=== PATIENT | female | born 1990 | race Caucasian/White ===

== ENCOUNTER 2018-06-07 06:15 | Day surgery (SDC) | payer BC ==
[2018-06-06 11:45] LABS: BASOPHILS % (AUTO) 0.4 % (0.0-2.0); EOSINOPHILS % (AUTO) 0.5 % (0.0-4.0); HEMATOCRIT 35.3 % (36-48); HEMOGLOBIN 12.1 g/dL (12.0-16.0); LYMPHOCYTES # (AUTO) 1.4 K/uL (1.0-5.5); LYMPHOCYTES % (AUTO) 21.5 % (20.5-51.5); MEAN CORPUSCULAR HEMOGLOBIN 31 pg (27-31); MEAN CORPUSCULAR HGB CONC 34 % (32-36); MEAN CORPUSCULAR VOLUME 89 fL (79.0-98.0); MONOCYTES # (AUTO) 0.4 K/uL (0.0-1.0); MONOCYTES % (AUTO) 6.3 % (1.7-9.3); NEUTROPHILS # (AUTO) 4.6 K/uL (1.8-7.7); NEUTROPHILS % (AUTO) 71.3 % (40.0-70.0); PLATELET COUNT (AUTO) 409 K/uL (130-430); RED BLOOD CELL COUNT(AUTO) 3.96 MIL/uL (4.2-6.2); RED CELL DISTRIBUTION WIDTH 12.3 % (9.0-15.0); WHITE BLOOD COUNT (AUTO) 6.4 K/uL (4.8-10.8)
[2018-06-06 11:58] LABS: CALCIUM 9.4 mg/dL (8.4-11.0); CREATININE 0.59 mg/dL (0.55-1.30); POTASSIUM 4.3 mmol/L (3.5-5.1)
[2018-06-06 12:03] LABS: BILIRUBIN,URINE NEGATIVE (NEGATIVE); BLOOD, URINE NEGATIVE (NEGATIVE); CLARITY/URINE CLEAR (CLEAR); COLOR,URINE YELLOW (YELLOW); GLUCOSE,URINE NEGATIVE (NEGATIVE); KETONES,URINE NEGATIVE (NEGATIVE); LEUKOCYTE ESTERASE ,URINE NEGATIVE (NEGATIVE); NITRITE, URINE NEGATIVE (NEGATIVE); PH,URINE 7.5 (5.0-8.0); PROTEIN URINE NEGATIVE (NEGATIVE); UROBILINOGEN,URINE 0.2 (0.2-1.0)
[2018-06-06 12:04] LABS: HCG,QUAL RESULT NEGATIVE (NEGATIVE)
[~2018-06-07] VITALS: Ht 160 cm; Wt 64.0 kg
[2018-06-07] MEDS ORDERED: KETOROLAC TROMETHAMINE 30 MG VIAL IVP PRN (08:15)
[2018-06-07] MEDS ORDERED: fentaNYL CITRATE/PF 100 MCG/2 ML AMP IVP PRN ×2 (08:15)
[2018-06-07] MEDS ORDERED: ONDANSETRON HCL 4 MG/2 ML VIAL IVP PRN ×2 (08:15→08:45)
[2018-06-07] MEDS ORDERED: OXYCODONE/ACETAMINOPHEN 5-325 TABLET PO PRN (08:45)
[2018-06-07] MEDS ORDERED: PROMETHAZINE HCL 25 MG/ML AMP IM PRN (08:45)
[2018-06-07] MEDS ORDERED: LR 1,000 ML IV.SOLN IV ONE (09:00)
[2018-06-07] MEDS ORDERED: KETOROLAC TROMETHAMINE 30 MG VIAL ONE (09:00)
[2018-06-07] MEDS ORDERED: fentaNYL CITRATE/PF 100 MCG/2 ML AMP ONE (09:00)
[2018-06-07] MEDS ORDERED: NEOSTIGMINE METHYLSULFATE 1 MG/ML, 10 ML VIAL ONE (09:00)
[2018-06-07] MEDS ORDERED: PROPOFOL 200MG/ 20ML VIAL (DIPRIVAN) IV ONE (09:00)
[2018-06-07] MEDS ORDERED: ROCURONIUM BROMIDE 10 MG/ML (ZEMURON) ONE (09:00)
[2018-06-07] MEDS ORDERED: MIDAZOLAM HCL 5 MG/ML VIAL (VERSED) IV ONE (09:00)
[2018-06-07] MEDS ORDERED: SEVOFLURANE 15 MIN GAS INH ONE (09:00)
[2018-06-07] MEDS ORDERED: GLYCOPYRROLATE 0.2 MG/ML VIAL ONE (09:00)
[2018-06-07] MEDS ORDERED: ONDANSETRON HCL 4 MG/2 ML VIAL ONE ×2 (09:00→12:19)
[2018-06-07] MEDS ORDERED: NS 1000 ML IV.SOLN IV ONE (09:00)
[2018-06-07] MEDS ORDERED: OXYCODONE/ACETAMINOPHEN 5-325 TABLET ONE (10:13)
[2018-06-07 13:18] VITALS: BP_SYST 95
== END 2018-06-07 12:45 | disposition home or self-care (01) ==
LOC: SDS 06:15 → SMU 06:15 → SDS 12:45
PROVIDERS: ATTEND Obstetrics & Gynecology
DX: N83.202 Unspecified ovarian cyst, left side (principal); Z83.3 Family history of diabetes mellitus; Z80.49 Family history of malignant neoplasm of other genital organs
CPT/HCPCS: 36415; 58662; 80048; 81003; 84703; 85025; 86886; 86900; 86901; 88305; C1727; J1885; J2250; J2405; J2704; J2710; J3010; J3490; J7030; J7120